=== PATIENT | female | born 1935 | race Caucasian/White ===

== ENCOUNTER 2017-01-01 11:09 | Emergency (ER) | payer MEDICARE, BC ==
[2017-01-01 11:59] VITALS: TEMP 99.2
[2017-01-01 12:26] VITALS: PULSE 89; O2SAT 99
[2017-01-01 12:28] VITALS: BP 152/68; RESP 16
== END 2017-01-01 12:05 | disposition home or self-care (01) | DRG 305 ==
LOC: ED 11:09
DX: I10 Essential (primary) hypertension (principal)
CPT/HCPCS: 99282

== ENCOUNTER 2017-01-27 09:05 | Outpatient (CLI) | payer MEDICARE, BC ==
[2017-01-01 12:26] VITALS: O2SAT 99
== END 2017-01-27 09:06 | disposition home or self-care (01) | DRG 556 ==
LOC: CONVCARE 09:05
PROVIDERS: ATTEND Orthopaedic Surgery
DX: M25.532 Pain in left wrist (principal); M18.11 Unilateral primary osteoarthritis of first carpometacarpal joint, right hand
CPT/HCPCS: 73110; 73140

== ENCOUNTER 2017-06-19 19:17 | Emergency (ER) | payer MEDICARE, BC ==
[2017-06-19 19:38] VITALS: BP 173/98; PULSE 99; RESP 20; TEMP 98; O2SAT 98
== END 2017-06-19 20:13 | disposition home or self-care (01) | DRG 156 ==
LOC: ED 19:17
DX: H60.92 Unspecified otitis externa, left ear (principal)
CPT/HCPCS: 99282

== ENCOUNTER 2017-07-11 06:42 | Day surgery (SDC) | payer MEDICARE, BC ==
[2017-07-11] MEDS ORDERED: PROPOFOL 500 MG/50 ML EMU IV ONE (07:37)
[2017-07-11] MEDS ORDERED: LIDOCAINE HCL 1% MPF SOL ONE (07:38)
[2017-07-11 08:31] VITALS: TEMP 98.2
[2017-07-11 08:52] VITALS: PULSE 85; RESP 20; O2SAT 96
[2017-07-11 08:54] VITALS: BP 142/74
== END 2017-07-11 09:19 | disposition home or self-care (01) | DRG 392 ==
LOC: SURG 06:42
PROVIDERS: ATTEND Internal Medicine Gastroenterology
DX: R13.10 Dysphagia, unspecified (principal); K31.7 Polyp of stomach and duodenum; K21.9 Gastro-esophageal reflux disease without esophagitis; R10.10 Upper abdominal pain, unspecified; R14.0 Abdominal distension (gaseous); K44.9 Diaphragmatic hernia without obstruction or gangrene; K31.9 Disease of stomach and duodenum, unspecified
CPT/HCPCS: J2001; J2704

== ENCOUNTER 2018-06-23 11:35 | Emergency (ER) | payer MEDICARE, BC ==
[2018-06-23] MEDS ORDERED: ONDANSETRON 4 MG ODT ONE (12:10)
[2018-06-23] MEDS ORDERED: ONDANSETRON 4 MG ODT BU ONE (12:10)
[2018-06-23 13:21] VITALS: BP 160/83; PULSE 114; RESP 16; TEMP 97.6; O2SAT 99
== END 2018-06-23 12:54 | disposition home or self-care (01) | DRG 392 ==
LOC: ED 11:35
DX: R11.0 Nausea (principal)
CPT/HCPCS: 99282; 99283; A9270-GY

== ENCOUNTER 2019-05-19 10:49 | Emergency (ER) | payer MEDICARE, BC ==
[2019-05-19 11:03] VITALS: RESP 20; TEMP 97.6; O2SAT 96
[2019-05-19 12:31] VITALS: BP 139/75; PULSE 86
== END 2019-05-19 12:23 | disposition home or self-care (01) | DRG 204 ==
LOC: ED 10:49
DX: R07.81 Pleurodynia (principal); E11.9 Type 2 diabetes mellitus without complications
CPT/HCPCS: 71100; 99283